=== PATIENT | male | born 1970 ===

== ENCOUNTER 2017-06-25 14:23 | Emergency (ER) | payer SELFPAY ==
[2017-06-25 16:44] VITALS: BP 114/56
== END 2017-06-25 18:27 | disposition left against medical advice (07) ==
LOC: ED 14:23
DX: K08.89 Other specified disorders of teeth and supporting structures (principal); Z53.21 Procedure and treatment not carried out due to patient leaving prior to being seen by health care provider

== ENCOUNTER 2019-04-07 10:36 | Emergency (ER) | payer SELFPAY ==
--- NOTE | 2019-04-07 11:29 | Event Note ---
ED Screening Note Date of service: 04/07/19 Time: 11:27 ED Screening Note: This is a 48 y.o. M. that presents to the ER with left eye pain for 2 days. States he felt something go into his eye and tried to remove it Sunday. Patient reports double vision. Denies contact use. This initial assessment/diagnostic orders/clinical plan/treatment(s) is/are subject to change based on patients health status, clinical progression and re- assessment by fellow clinical providers in the ED. Further treatment and workup at subsequent clinical providers discretion. Patient/guardian urged not to elope from the ED as their condition may be serious if not clinically assessed and managed. Initial orders include:
[2019-04-07 11:42] VITALS: BP 129/81
[2019-04-07] MEDS ORDERED: FLUORESCEIN 1 MG STRIP OP ONE (12:27)
[2019-04-07] MEDS ORDERED: TETRACAINE 0.5% OPHTH SOLN 4ML OU ONE (12:27)
--- NOTE | 2019-04-07 13:21 | Emergency Department Report ---
HPI - General Chief Complaint: Eye Problems Time Seen by Provider: 04/07/19 11:27 - HPI HPI: 48-year-old Ashley male presents to the emergency department with complaint of some left eye irritation for the past 2 days. He is unsure whether or not something got into the eye but says that it feels like it did. He has increased irritation when he rubs the eye. No eye discharge. He denies actual pain but just says it feels irritated. Patient says that he has some double vision. He does not wear glasses or contacts. No past medical history. He has not taken anything for her symptoms prior to arrival. ED Past Medical Hx - Past Medical History Previous Medical History?: No - Surgical History Past Surgical History?: No - Social History Smoking Status: Never Smoker Substance Use Type: None - Medications Home Medications: Home Medications Medication Instructions Recorded Confirmed Last Taken Type Erythromycin [Erythromycin Ophth 1 applicatio OS Q6H #1 tube 04/07/19 Unknown Rx Oint] ED Review of Systems ROS: Stated complaint: LT EYE PAIN Other details as noted in HPI Comment: All other systems reviewed and negative Constitutional: denies: chills, fever Eyes: vision change. denies: eye discharge Neurological: denies: headache, weakness Physical Exam - Physical Exam Vital Signs: Vital Signs 04/07/19 11:41 Temperature 98.7 F Pulse Rate 81 Respiratory 18 Rate Blood Pressure 129/81 [Right] O2 Sat by Pulse 100 Oximetry Physical Exam: GENERAL: The patient is well-developed well-nourished. HENT: Normocephalic. Atraumatic. Patient has moist mucous membranes. EYES: Extraocular motions are intact. Normal accommodation. Pupils equal reactive to light bilaterally. Visual acuity: OD 20/13, OS 20/40, both eyes 20/40. No fluorescein uptake seen to the left eye on wagoner lamp examination. NECK: Supple. Trachea is midline. ABDOMEN: There is no abdominal distention. SKIN: Skin is warm and dry. NEURO: The patient is awake, alert, and oriented. The patient is cooperative. The patient has no focal neurologic deficits. Normal speech. MUSCULOSKELETAL: There is no tenderness or deformity. There is no evidence of acute injury. ED Course Vital Signs 04/07/19 11:41 Temperature 98.7 F Pulse Rate 81 Respiratory 18 Rate Blood Pressure 129/81 [Right] O2 Sat by Pulse 100 Oximetry ED Medical Decision Making - Medical Decision Making This patient presents to the emergency department with a complaint of some left eye redness and irritation over the past few days. He is unsure if something got into his eye but says it felt like it did. The irritation worsens when he rubs his eye. No tearing, discharge. He complains of some double vision. No headache, slurred speech or any other neurological deficits. His visual acuity is the same with both the left eye and both eyes. There was no corneal abrasion seen or any corneal defect seen on was lab examination with fluorescein staining. He has normal extraocular motion and accommodation. Patient says it is irritation and he does not have any significant pain. He appears safe for discharge home but has been instructed to follow-up with ophthalmology in the next few days and has been given a referral for 2 different local o phthalmologist. He was placed on erythromycin ointment. He will return to the emergency Department with any worsening of his symptoms or any acute distress. - Differential Diagnosis corneal abrasion, conjunctivitis, iritis Critical Care Time: No Critical care attestation.: If time is entered above; I have spent that time in minutes in the direct care of this critically ill patient, excluding procedure time. ED Disposition Clinical Impression: Irritation of left eye Disposition: DC-01 TO HOME OR SELFCARE Is pt being admited?: No Condition: Stable Instructions: Blurred Vision (ED) Additional Instructions: Please follow-up with an social work coordinator in the next few days regarding your eye irritation and double vision. I have given you a referral for 2 different local social work coordinator. Return to the emergency Department with any worsening of your symptoms or any acute distress. Use the eye antibiotic ointment as prescribed. Prescriptions: Erythromycin [Erythromycin Ophth Oint] 1 applicatio OS Q6H #1 tube Referrals: DARRION SANDOVAL MD [Staff Physician] - PHILLIP KIRAN MD [Staff Physician] - LINO Time of Disposition: 13:23
== END 2019-04-07 14:31 | disposition home or self-care (01) ==
LOC: ED 10:36
DX: H57.12 Ocular pain, left eye (principal); Z79.899 Other long term (current) drug therapy